=== PATIENT | female | born 2000 | race African-American/Black ===

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

== ENCOUNTER 2018-01-29 13:03 | Emergency (ER) | payer OTHER ==
[~2018-01-29] VITALS: Ht 152.4 cm; Wt 48.1 kg
[2018-01-29] MEDS ORDERED: PRENATAL 19 CH1 EACH PO (13:12)
[2018-05-13] MEDS ORDERED: KEFLEX250 MG/5 M PO (00:09)
== END 2018-01-29 13:35 | disposition home or self-care (01) ==
LOC: ER 13:03
DX: O26.891 Other specified pregnancy related conditions, first trimester (principal); S83.8X2A Sprain of other specified parts of left knee, initial encounter; Z3A.01 Less than 8 weeks gestation of pregnancy; W01.0XXA Fall on same level from slipping, tripping and stumbling without subsequent striking against object, initial encounter; Y93.89 Activity, other specified; Y92.89 Other specified places as the place of occurrence of the external cause; Y99.8 Other external cause status

== ENCOUNTER 2018-03-20 21:54 | Emergency (ER) | payer OTHER ==
[~2018-03-20] VITALS: Ht 152.4 cm; Wt 49.4 kg
[~2018-03-20 21:54] MED LIST changes: +PRENATAL 19 CH1 EACH PO
[2018-03-21 00:07] VITALS: BP 105/62
== END 2018-03-20 23:06 | disposition home or self-care (01) ==
LOC: ER 21:54
DX: O26.891 Other specified pregnancy related conditions, first trimester (principal); S50.02XA Contusion of left elbow, initial encounter; Z3A.14 14 weeks gestation of pregnancy; W10.8XXA Fall (on) (from) other stairs and steps, initial encounter; Y93.89 Activity, other specified; Y92.89 Other specified places as the place of occurrence of the external cause; Y99.8 Other external cause status

== ENCOUNTER 2018-05-12 22:35 | Emergency (ER) | payer OTHER ==
[~2018-05-12] VITALS: Ht 152.4 cm; Wt 58.1 kg
[2018-05-12 23:48] LABS: URINE BILIRUBIN NEGATIVE (Negative); URINE BLOOD NEGATIVE (Negative); URINE CLARITY CLEAR; URINE COLOR YELLOW; URINE GLUCOSE-RANDOM* NEGATIVE (Negative); URINE KETONES NEGATIVE (Negative); URINE NITRITE-REFLEX NEGATIVE (Negative); URINE PROTEIN (DIPSTICK) NEGATIVE (Negative); URINE SPECIFIC GRAVITY 1.015 (1.005-1.035); URINE UROBILINOGEN 0.2 E.U./dl (0.2-1.0)
[2018-05-12 23:49] LABS: URINE LEUKOCYTES-REFLEX 2+ (Negative)
[2018-05-12 23:50] VITALS: BP 113/70
[2018-05-12] MEDS ORDERED: PEPCID20 MG PO (23:53)
[2018-05-13 00:05] LABS: CASTS None Seen /LPF (None Seen); MUCUS 0-3 Light strn/LPF (None Seen); SQUAMOUS >10 Many /LPF (0-3)
[2018-05-13 00:06] LABS: BACTERIA-REFLEX 1-9 Few /HPF (None Seen); CRYSTALS None Seen /LPF (None Seen); URINE RBC 0-2 Rare /HPF (0-2)
[2018-05-13] MEDS ORDERED: KEFLEX250 MG/5 M PO (00:09)
== END 2018-05-12 23:58 | disposition home or self-care (01) ==
LOC: ER 22:35
PROVIDERS: Emergency Medicine
DX: O99.612 Diseases of the digestive system complicating pregnancy, second trimester (principal); K29.70 Gastritis, unspecified, without bleeding; R82.71 Bacteriuria; Z3A.21 21 weeks gestation of pregnancy

== ENCOUNTER 2018-06-06 14:07 | Emergency (ER) | payer OTHER ==
[~2018-06-06] VITALS: Ht 152.4 cm; Wt 54.0 kg
[~2018-06-06 14:07] MED LIST changes: +KEFLEX250 MG/5 M PO
[2018-06-06 15:44] LABS: CALCIUM 8.7 mg/dL (8.5-10.1); CREATININE 0.7 mg/dL (0.6-1.0); MAGNESIUM 1.7 mg/dL (1.8-2.4); POTASSIUM 3.2 mmol/L (3.5-5.1)
[2018-06-06] MEDS ORDERED: K-DUR 20 MEQ T20 MEQ PO (16:27)
[2018-06-06 16:31] VITALS: BP 103/54
== END 2018-06-06 16:35 | disposition home or self-care (01) ==
LOC: ER 14:07
PROVIDERS: Physician Assistant
DX: O26.892 Other specified pregnancy related conditions, second trimester (principal); Z3A.25 25 weeks gestation of pregnancy; R25.2 Cramp and spasm; M79.605 Pain in left leg; E87.6 Hypokalemia

== ENCOUNTER 2018-10-01 12:39 | Emergency (ER) | payer OTHER ==
[~2018-10-01] VITALS: Ht 152.4 cm; Wt 49.9 kg
[~2018-10-01 12:39] MED LIST changes: +K-DUR 20 MEQ T20 MEQ PO
[2018-10-01] MEDS ORDERED: IBUPROFEN 600600 M1 PO (14:14)
[2018-10-01 14:30] VITALS: BP 110/73
== END 2018-10-01 14:30 | disposition home or self-care (01) ==
LOC: ER 12:39
DX: S63.614A Unspecified sprain of right ring finger, initial encounter (principal); Y04.8XXA Assault by other bodily force, initial encounter; Y93.89 Activity, other specified; Y92.89 Other specified places as the place of occurrence of the external cause; Y99.8 Other external cause status

== ENCOUNTER 2018-10-29 10:49 | Emergency (ER) | payer OTHER ==
[~2018-10-29] VITALS: Ht 152.4 cm; Wt 49.0 kg
[~2018-10-29 10:49] MED LIST changes: +IBUPROFEN 600600 M1 PO
[2018-10-29] MEDS ORDERED: MOBIC7.5 MG PO ×2 (12:03→13:55)
[2018-10-29] MEDS ORDERED: ARTIFICIAL TEAR15 M1 OPHTHALMIC ×2 (12:03→13:55)
[2018-10-29 13:36] VITALS: BP 119/77
== END 2018-10-29 13:50 | disposition home or self-care (01) ==
LOC: ER 10:49
DX: H10.212 Acute toxic conjunctivitis, left eye (principal)

== ENCOUNTER 2019-04-14 23:51 | Emergency (ER) | payer OTHER ==
[~2019-04-14] VITALS: Ht 177.8 cm; Wt 47.6 kg
[2019-04-15 02:22] LABS: URINE BILIRUBIN NEGATIVE (Negative); URINE BLOOD NEGATIVE (Negative); URINE CLARITY CLEAR; URINE COLOR YELLOW; URINE GLUCOSE-RANDOM* NEGATIVE (Negative); URINE KETONES NEGATIVE (Negative); URINE LEUKOCYTES-REFLEX NEGATIVE (Negative); URINE NITRITE-REFLEX NEGATIVE (Negative); URINE PROTEIN (DIPSTICK) 1+ (Negative); URINE SPECIFIC GRAVITY >= 1.030 (1.005-1.035)
[2019-04-15 02:33] LABS: HYALINE CASTS 0-3 Few /LPF (None Seen); MUCUS 4-6 Moderate strn/LPF (None Seen); SQUAMOUS 0-3 Few /LPF (0-3); URINE WBC-REFLEX 0-5 Rare /HPF (0-5)
[2019-04-15 02:34] LABS: BACTERIA-REFLEX 1-9 Few /HPF (None Seen); CRYSTALS None Seen /LPF (None Seen); URINE RBC None Seen /HPF (0-2)
[2019-04-15 03:12] VITALS: BP 101/68
== END 2019-04-15 03:16 | disposition home or self-care (01) ==
LOC: ER 23:51
PROVIDERS: Emergency Medicine
DX: N34.2 Other urethritis (principal)

== ENCOUNTER 2019-06-21 02:53 | Emergency (ER) | payer OTHER ==
[~2019-06-21] VITALS: Ht 152.4 cm; Wt 49.0 kg
[~2019-06-21 02:53] MED LIST changes: +ARTIFICIAL TEAR15 M1 OPHTHALMIC; +MOBIC7.5 MG PO
[2019-06-21 02:54] VITALS: BP 120/61
[2019-06-21 03:43] LABS: URINE BILIRUBIN NEGATIVE (Negative); URINE BLOOD NEGATIVE (Negative); URINE CLARITY CLEAR; URINE COLOR YELLOW; URINE GLUCOSE-RANDOM* NEGATIVE (Negative); URINE KETONES NEGATIVE (Negative); URINE LEUKOCYTES-REFLEX TRACE (Negative); URINE NITRITE-REFLEX NEGATIVE (Negative); URINE PROTEIN (DIPSTICK) NEGATIVE (Negative); URINE SPECIFIC GRAVITY <= 1.005 (1.005-1.035); URINE UROBILINOGEN 0.2 E.U./dl (0.2-1.0)
[2019-06-21] MEDS ORDERED: IBUPROFEN 600600 M1 PO (04:19)
== END 2019-06-21 04:36 | disposition home or self-care (01) ==
LOC: ER 02:53
PROVIDERS: Emergency Medicine
DX: R10.30 Lower abdominal pain, unspecified (principal)

== ENCOUNTER 2019-08-16 03:25 | Emergency (ER) | payer OTHER ==
[~2019-08-16] VITALS: Ht 152.4 cm; Wt 49.9 kg
[2019-08-16 03:28] VITALS: BP 93/52
[2019-08-16] MEDS ORDERED: NOHOMEMEDICATIONS (03:29)
== END 2019-08-16 04:04 | disposition home or self-care (01) ==
LOC: ER 03:25
DX: S96.811A Strain of other specified muscles and tendons at ankle and foot level, right foot, initial encounter (principal); X50.0XXA Overexertion from strenuous movement or load, initial encounter; Y92.89 Other specified places as the place of occurrence of the external cause; Y93.89 Activity, other specified; Y99.0 Civilian activity done for income or pay

== ENCOUNTER 2020-12-09 21:35 | Emergency (ER) | payer OTHER ==
[~2020-12-09] VITALS: Ht 152.4 cm; Wt 45.8 kg
[~2020-12-09 21:35] MED LIST changes: +NOHOMEMEDICATIONS
[2020-12-09 22:31] LABS: ABSOLUTE NEUTROPHILS 9.2 thou/uL (1.4-8.2); BASOPHILS 0.3 % (0.0-2.0); EOSINOPHILS 0.9 % (0.0-3.0); HEMATOCRIT 26.7 % (37.0-47.0); HEMOGLOBIN 8.7 gm/dL (12.0-15.0); MCH 28.7 pg (26.0-34.0); MCHC 32.7 g/dL (28.0-37.0); MCV 87.5 fL (80.0-100.0); MONOCYTES 8.3 % (1.0-8.0); PLATELET COUNT 393 thou/uL (150-400); POLYS 71.5 % (36.0-66.0); RBC 3.05 mil/uL (4.20-5.00); RDW 14.4 % (10.5-14.5); WBC 12.9 thou/uL (4.0-11.0)
[2020-12-09 22:34] LABS: CALCIUM 8.4 mg/dL (8.5-10.1); CREATININE 0.6 mg/dL (0.6-1.0); POTASSIUM 3.5 mmol/L (3.5-5.1)
[2020-12-09 22:42] LABS: ALBUMIN 2.9 g/dL (3.4-5.0); TOTAL BILIRUBIN 0.4 mg/dL (0.2-1.0); TOTAL PROTEIN 6.8 g/dL (6.4-8.2)
[2020-12-09 23:02] LABS: URINE BILIRUBIN NEGATIVE (Negative); URINE BLOOD NEGATIVE (Negative); URINE CLARITY CLEAR; URINE COLOR YELLOW; URINE GLUCOSE-RANDOM* NEGATIVE (Negative); URINE KETONES 1+ (Negative); URINE NITRITE-REFLEX NEGATIVE (Negative); URINE PROTEIN (DIPSTICK) NEGATIVE (Negative); URINE SPECIFIC GRAVITY 1.015 (1.005-1.035); URINE UROBILINOGEN 0.2 E.U./dl (0.2-1.0)
[2020-12-09 23:18] LABS: BACTERIA-REFLEX 1-9 Few /HPF (None Seen); CASTS None Seen /LPF (None Seen); CRYSTALS None Seen /LPF (None Seen); MUCUS 0-3 Light strn/LPF (None Seen); SQUAMOUS 4-10 Moderate /LPF (0-3); URINE LEUKOCYTES-REFLEX 1+ (Negative); URINE RBC 0-2 Rare /HPF (0-2); URINE WBC-REFLEX 6-15 Few /HPF (0-5)
[2020-12-09 23:33] VITALS: BP 113/67
== END 2020-12-09 23:37 | disposition home or self-care (01) ==
LOC: ER 21:35
PROVIDERS: Emergency Medicine
DX: O26.892 Other specified pregnancy related conditions, second trimester (principal); R51.9 Headache, unspecified; Z90.89 Acquired absence of other organs; Z3A.21 21 weeks gestation of pregnancy

== ENCOUNTER 2021-01-13 16:42 | Emergency (ER) | payer OTHER ==
[~2021-01-13] VITALS: Ht 152.4 cm; Wt 49.4 kg
[2021-01-13 17:24] LABS: URINE BILIRUBIN NEGATIVE (Negative); URINE BLOOD NEGATIVE (Negative); URINE CLARITY CLEAR; URINE COLOR YELLOW; URINE GLUCOSE-RANDOM* NEGATIVE (Negative); URINE KETONES 1+ (Negative); URINE LEUKOCYTES-REFLEX TRACE (Negative); URINE NITRITE-REFLEX NEGATIVE (Negative); URINE PROTEIN (DIPSTICK) NEGATIVE (Negative)
[2021-01-13 17:59] VITALS: BP 105/65
== END 2021-01-13 18:00 | disposition short-term general hospital (02) ==
LOC: ER 16:42
PROVIDERS: Nurse Practitioner Family
DX: O26.892 Other specified pregnancy related conditions, second trimester (principal); S20.224A Contusion of middle back wall of thorax, initial encounter; S30.1XXA Contusion of abdominal wall, initial encounter; S09.90XA Unspecified injury of head, initial encounter; Z90.89 Acquired absence of other organs; Z3A.27 27 weeks gestation of pregnancy; Y04.2XXA Assault by strike against or bumped into by another person, initial encounter; Y93.89 Activity, other specified; Y92.89 Other specified places as the place of occurrence of the external cause; Y99.8 Other external cause status

== ENCOUNTER 2021-05-19 22:16 | Emergency (ER) | payer OTHER ==
[~2021-05-19] VITALS: Ht 152.4 cm; Wt 49.9 kg
[2021-05-19] MEDS ORDERED: FLEXERIL PO (22:46)
[2021-05-19] MEDS ORDERED: MOBIC7.5 MG PO (22:46)
[2021-05-19 23:39] VITALS: BP 127/87
== END 2021-05-19 23:40 | disposition home or self-care (01) ==
LOC: ER 22:16
DX: S39.012A Strain of muscle, fascia and tendon of lower back, initial encounter (principal); Z90.89 Acquired absence of other organs; X50.1XXA Overexertion from prolonged static or awkward postures, initial encounter; Y93.89 Activity, other specified; Y92.89 Other specified places as the place of occurrence of the external cause; Y99.8 Other external cause status

== ENCOUNTER 2021-10-20 23:56 | Emergency (ER) | payer OTHER ==
[~2021-10-20] VITALS: Ht 152.4 cm; Wt 49.9 kg
[~2021-10-20 23:56] MED LIST changes: +FLEXERIL PO
[2021-10-21 03:06] LABS: ABSOLUTE NEUTROPHILS 6.4 thou/uL (1.4-8.2); BASOPHILS 0.4 % (0.0-2.0); EOSINOPHILS 1.6 % (0.0-3.0); HEMATOCRIT 32.8 % (37.0-47.0); HEMOGLOBIN 11.2 gm/dL (12.0-15.0); LYMPHOCYTES 21.5 % (24.0-44.0); MCH 30.4 pg (26.0-34.0); MCV 89.4 fL (80.0-100.0); MONOCYTES 9.9 % (1.0-8.0); PLATELET COUNT 315 thou/uL (150-400); POLYS 66.6 % (36.0-66.0); RBC 3.67 mil/uL (4.20-5.00); RDW 14.5 % (10.5-14.5); WBC 9.6 thou/uL (4.0-11.0)
[2021-10-21 03:19] LABS: ANION GAP 11 mmol/L (7-16); BUN 10 mg/dL (7-18); CALCIUM 8.8 mg/dL (8.5-10.1); CHLORIDE 100 mmol/L (98-107); CO2 23 mmol/L (21-32); CREATININE 0.5 mg/dL (0.6-1.0); GLUCOSE 84 mg/dL (74-106); POTASSIUM 3.5 mmol/L (3.5-5.1); SODIUM 134 mmol/L (136-145)
[2021-10-21 03:24] LABS: DIRECT BILIRUBIN < 0.1 mg/dL (<0.1-0.2); SGOT 15 U/L (15-37); SGPT 15 U/L (30-65); TOTAL BILIRUBIN 0.2 mg/dL (0.2-1.0); TOTAL PROTEIN 6.4 g/dL (6.4-8.2)
[2021-10-21 03:24] LABS: URINE BILIRUBIN NEGATIVE (Negative); URINE BLOOD NEGATIVE (Negative); URINE CLARITY CLEAR; URINE COLOR YELLOW; URINE GLUCOSE-RANDOM* NEGATIVE (Negative); URINE KETONES NEGATIVE (Negative); URINE LEUKOCYTES-REFLEX NEGATIVE (Negative); URINE NITRITE-REFLEX NEGATIVE (Negative); URINE PROTEIN (DIPSTICK) NEGATIVE (Negative)
[2021-10-21 06:05] VITALS: BP 100/60
== END 2021-10-21 06:06 | disposition home or self-care (01) ==
LOC: ER 23:56
PROVIDERS: Student in an Organized Health Care Education/Training Program
DX: O26.891 Other specified pregnancy related conditions, first trimester (principal); Z20.822 Contact with and (suspected) exposure to COVID-19; Z3A.13 13 weeks gestation of pregnancy; Z90.89 Acquired absence of other organs